=== PATIENT | male | born 1955 | race Caucasian/White ===

== ENCOUNTER 2016-11-20 09:25 | Day surgery (SDC) | payer BC, OTHER ==
[~2016-11-20] VITALS: Ht 167.6 cm; Wt 79.5 kg
[~2016-11-20 09:25] MED LIST: CARB1TAB73 PO; FAMO20TA7 PO; FLUT9.9S NS; LORA10TA75 PO; SODI104S3 NS; TAMS0.4C2 PO
[2016-11-20] MEDS ORDERED: LACTATED RINGERS 1,000 ML IV SCH (10:01)
[2016-11-20] MEDS ORDERED: ASPI-496 PO (10:03)
[2016-11-20 10:37] VITALS: BP 129/77
[2016-11-20] MEDS ORDERED: ISOSULFAN BLUE 10 MG/ML, 5ML IV ONE (12:39)
[2016-11-20] MEDS ORDERED: FLUORESCEIN SODIUM 500 MG/5 ML ONE (12:44)
[2016-11-20] MEDS ORDERED: PROPOFOL 10 MG/ML, 20ML ONE (12:53)
[2016-11-20] MEDS ORDERED: FENTANYL PF 100 MCG/2ML IV PRN (13:30)
[2016-11-20] MEDS ORDERED: MIDAZOLAM 1 MG/ML, 2ML IV PRN (13:30)
[2016-11-20] MEDS ORDERED: OXYcodone 5 MG/5 ML ORAL.SOL UDC PO PRN (13:30)
[2016-11-20] MEDS ORDERED: ONDANSETRON 2MG/ML, 2ML IVPush PRN (13:30)
[2016-11-20] MEDS ORDERED: HYDROmorphone 1 MG/ML, 1ML IV PRN (13:30)
== END 2016-11-20 14:40 | disposition home or self-care (01) ==
LOC: OUT 09:25
PROVIDERS: ATTEND Internal Medicine Geriatric Medicine
DX: D12.8 Benign neoplasm of rectum (principal); G20 Parkinson's disease; I48.91 Unspecified atrial fibrillation; N40.0 Benign prostatic hyperplasia without lower urinary tract symptoms; Z87.19 Personal history of other diseases of the digestive system
CPT/HCPCS: 45331; 45341; 88304; 93005; J2704; J7120

== ENCOUNTER 2016-12-25 06:21 | Observation (INO) | payer BC ==
[~2016-12-25] VITALS: Ht 167.6 cm; Wt 74.5 kg
[~2016-12-25 06:21] MED LIST changes: +ASPI-496 PO
[2016-12-25] MEDS ORDERED: LIDOCAINE 1%, 2ML ONE (07:01)
[2016-12-25 07:19] VITALS: BP 115/76
[2016-12-25] MEDS ORDERED: LACTATED RINGERS 1,000 ML IV SCH (07:31)
[2016-12-25] MEDS ORDERED: LIDOCAINE 1%, 2ML SQ PRN (08:00)
[2016-12-25] MEDS ORDERED: BUPIVACAINE/PF-EPI 0.5% 1:200K ONE (08:27)
[2016-12-25] MEDS ORDERED: FENTANYL PF 100 MCG/2ML ONE ×2 (08:38→09:42)
[2016-12-25] MEDS ORDERED: PROPOFOL 10 MG/ML, 20ML ONE (08:40)
[2016-12-25] MEDS ORDERED: DEXAMETHASONE 4 MG/ML, 1ML ONE (08:40)
[2016-12-25] MEDS ORDERED: ONDANSETRON 2MG/ML, 2ML ONE (08:40)
[2016-12-25] MEDS ORDERED: SUCCINYLCHOLINE 20 MG/ML, 10ML ONE (08:40)
[2016-12-25] MEDS ORDERED: CEFAZOLIN 1,000 MG ONE (08:40)
[2016-12-25] MEDS ORDERED: CARBIDOPA/LEVODOPA 10 MG/100 MG TABLET PO SCH (09:00)
[2016-12-25] MEDS ORDERED: ACETAMINOPHEN 325 MG TABLET PO PRN (09:00)
[2016-12-25] MEDS ORDERED: METOPROLOL 1 MG/ML, 5ML IV PRN (09:00)
[2016-12-25] MEDS ORDERED: FENTANYL PF 100 MCG/2ML IV PRN (09:00)
[2016-12-25] MEDS ORDERED: ALBUTEROL SULFATE 2.5 MG/3 ML NPPB PRN (09:00)
[2016-12-25] MEDS ORDERED: HYDROmorphone 1 MG/ML, 1ML IV PRN (09:00)
[2016-12-25] MEDS ORDERED: hydrALAzine 20 MG/ML, 1ML IV PRN (09:00)
[2016-12-25] MEDS ORDERED: OXYcodone 5 MG/5 ML ORAL.SOL UDC PO PRN ×2 (09:00→11:30)
[2016-12-25] MEDS ORDERED: CARBIDOPA/LEVODOPA 10 MG/100 MG TABLET PO ONE (09:41)
[2016-12-25] MEDS ORDERED: OXYcodone 5 MG/5 ML ORAL.SOL UDC ONE (09:42)
[2016-12-25] MEDS ORDERED: DIPHENHYDRAMINE 50 MG/ML, 1ML IVPush PRN (11:30)
[2016-12-25] MEDS ORDERED: SODIUM CHLORIDE NASAL SPRAY 45ML BOTTLE NAS PRN (11:30)
[2016-12-25] MEDS ORDERED: FLUTICASONE NASAL SPRAY 16GM NAS PRN (11:30)
[2016-12-25] MEDS ORDERED: FAMOTIDINE 20 MG TABLET PO PRN (11:30)
[2016-12-25] MEDS: ONDANSETRON 2MG/ML, 2ML IVPush PRN ×2 (12:28→22:41)
[2016-12-25] MEDS: STALEVO PO SCH ×2 (14:15→21:00)
[2016-12-25 19:03] VITALS: BP 124/77
[2016-12-25] MEDS ORDERED: TAMSULOSIN 0.4 MG CAP.ER.24H PO SCH (21:00)
[2016-12-25 23:53] VITALS: BP 97/57
[2016-12-26 03:36] VITALS: BP 115/72
[2016-12-26 06:45] VITALS: BP 104/66
[2016-12-26] MEDS: STALEVO PO SCH (08:00)
[2016-12-26] MEDS ORDERED: OXYC-302 PO (08:09)
[2016-12-26] MEDS ORDERED: LORATADINE 10 MG TABLET PO SCH (09:00)
== END 2016-12-26 09:24 | disposition home or self-care (01) ==
LOC: OUT 06:21 → 4NOR 10:28 → OUT 10:48
PROVIDERS: ADMIT Surgery; ATTEND Surgery
DX: C19 Malignant neoplasm of rectosigmoid junction (principal); G20 Parkinson's disease; Z98.890 Other specified postprocedural states
CPT/HCPCS: 45171; 88304; 88331; 88332; 96374; 96376; G0378; J0330; J0690; J1100; J2405; J2704; J3010; J3490; J7120